=== PATIENT | male | born 1975 | race Caucasian/White ===

== ENCOUNTER 2023-12-21 10:08 | Outpatient (CLI) | payer OTHER, SELFPAY ==
--- NOTE | 2023-12-21 11:00 | NEURO_ITS ---
# Impression: # Complains of right hand numbness. # Evolving mild right Carpal Tunnel Syndrome. 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 # Needle/EMG exam mildly abnormal in right abductor digiti minimi. Nerve Conduction Studies Anti Sensory Summary Table Stim Site NR Peak (ms) P-T Amp (?V) Site1 Site2 Delta-P (ms) Dist (cm) Delroy (m/s) Right Median Anti Sensory (2-3nd Digit) Wrist 3.8 36.5 Wrist 2-3nd Digit 3.8 14.0 37 Wrist 3.7 32.6 Wrist 2-3nd Digit 3.8 14.0 37 Right Radial Anti Sensory (Base 1st Digit) Wrist 3.1 10.0 Wrist Base 1st Digit 3.1 0.0 Right Ulnar Anti Sensory (5th Digit) Wrist 2.9 11.7 Wrist 5th Digit 2.9 14.0 48 Motor Summary Table Stim Site NR Onset (ms) O-P Amp (mV) Site1 Site2 Delta-0 (ms) Dist (cm) Delroy (m/s) Right Median Motor (Abd Poll Brev) Wrist 4.3 3.6 Elbow Wrist 5.2 29.0 56 Elbow 9.5 3.1 Right Ulnar Motor (Abd Dig Minimi) Wrist 2.8 2.9 A Elbow Wrist 8.5 32.0 38 A Elbow 11.3 2.4 B Elbow Wrist 5.0 24.0 48 B Elbow 7.8 1.6 F Wave Studies NR F-Lat (ms) L-R F-Lat (ms) Right Median (Mrkrs) (Abd Poll Brev) 31.52 Right Ulnar (Mrkrs) (Abd Dig Min) 25.94 EMG Side Muscle Nerve Root Ins Act Fibs Amp Dur Recrt Comment Right 1stDorInt Ulnar C8-T1 Nml Nml Nml >12ms Reduced Right Ext Indicis Radial (Post Int) C7-8 Nml Nml Nml Nml Nml Right Ext Digitorum Radial (Post Int) C7-8 Nml Nml Nml Nml Nml Right BrachioRad Radial C5-6 Nml Nml Nml Nml Nml Right PronatorTeres Median C6-7 Nml Nml Nml Nml Nml Right Abd Poll Brev Median C8-T1 Nml Nml Nml >12ms Nml Right ABD Dig Min Ulnar C8-T1 Nml Nml Nml >12ms Reduced MTDD
== END 2023-12-21 10:09 | disposition home or self-care (01) ==
DX: M20.10 Hallux valgus (acquired), unspecified foot (principal); I10 Essential (primary) hypertension; E03.9 Hypothyroidism, unspecified; M25.511 Pain in right shoulder; R20.2 Paresthesia of skin; G56.01 Carpal tunnel syndrome, right upper limb; G56.21 Lesion of ulnar nerve, right upper limb
CPT/HCPCS: 95886; 95909

== ENCOUNTER 2025-01-12 12:26 | Outpatient (CLI) | payer OTHER, SELFPAY | END 2025-01-12 12:27 | disposition home or self-care (01) | LOC: ANHIMG 12:29 | PROVIDERS: Visit Provider Physician Assistant | DX: M25.811 Other specified joint disorders, right shoulder (principal); M19.011 Primary osteoarthritis, right shoulder; M67.813 Other specified disorders of tendon, right shoulder; I10 Essential (primary) hypertension; G47.30 Sleep apnea, unspecified; E78.5 Hyperlipidemia, unspecified; H52.4 Presbyopia; K76.0 Fatty (change of) liver, not elsewhere classified | CPT/HCPCS: 73221 ==